=== PATIENT | female | born 1950 | race Caucasian/White ===

== ENCOUNTER 2021-11-21 21:02 | Emergency (ER) | payer MEDICAID ==
[~2021-11-21] VITALS: Ht 154.9 cm; Wt 68.9 kg
--- NOTE | 2021-11-21 21:14 | NUR ---
BIB GRANDDAUGHTER, A/O X 3. PT C/O DIZZINESS 2 DAYS AGO. DENIES ANY DIZZINESS AT THIS TIME. RIGHT FINGERS TO RT HAND STIFF PER PT. NO OTHERS SYMPTOMS
--- NOTE | 2021-11-21 21:26 | NUR ---
DOVETAILER AT BEDSIDE
[2021-11-21 21:40] LABS: BASOPHILS # (AUTO) 0.1 K/uL (0.0-0.2); BASOPHILS % (AUTO) 0.7 % (0.0-2.0); EOSINOPHILS % (AUTO) 2.5 % (0.0-6.0); HEMATOCRIT 40 % (33-45); HEMOGLOBIN 13.3 g/dL (11.5-14.8); LYMPHOCYTES # (AUTO) 4.2 K/uL (0.8-4.8); LYMPHOCYTES % (AUTO) 38.7 % (20.0-44.0); MEAN CORPUSCULAR HGB CONC 33 g/dl (31.0-36.0); MEAN CORPUSCULAR VOLUME 91 fL (82-100); MONOCYTES # (AUTO) 0.8 K/uL (0.1-1.30); MONOCYTES % (AUTO) 7.6 % (2.0-12.0); NEUTROPHILS # (AUTO) 5.5 K/uL (1.8-8.9); NEUTROPHILS % (AUTO) 50.5 % (43.0-81.0); PLATELET COUNT (AUTO) 222 K/uL (150-450); RED BLOOD CELL COUNT(AUTO) 4.47 MIL/uL (4.0-5.2)
[2021-11-21 21:47] LABS: CALCIUM, SERUM 8.8 mg/dL (8.5-10.1); CREATININE 0.8 mg/dL (0.6-1.3); MAGNESIUM 2.1 mg/dL (1.8-2.4); POTASSIUM 4.3 mmol/L (3.5-5.1)
--- NOTE | 2021-11-21 21:48 | NUR ---
CRITICAL: GLUCOSE [id number], MD MADE AWARE
[2021-11-21 21:58] LABS: PHENYTOIN (DILANTIN) 5.5 ug/ml (10.0-20.0)
[2021-11-21] MEDS ORDERED: GABA-532 PO (22:38)
[2021-11-21 23:19] VITALS: BP 121/68
== END 2021-11-21 23:19 | disposition home or self-care (01) ==
LOC: ER 21:05
DX: R20.2 Paresthesia of skin (principal); G62.9 Polyneuropathy, unspecified; Z79.899 Other long term (current) drug therapy
CPT/HCPCS: 36415; 80048-TC; 80185-TC; 83735-TC; 85025-TC